=== PATIENT | male | born 1985 | race Caucasian/White ===

== ENCOUNTER 2018-11-24 06:25 | Emergency (ER) | payer SELFPAY ==
[~2018-11-24] VITALS: Ht 182.9 cm; Wt 136.1 kg
[2018-11-24 06:30] VITALS: BP 151/95
--- NOTE | 2018-11-24 06:30 | NUR ---
PT AMBULATED SELF TO BED #11
[2018-11-24 06:39] VITALS: BP 151/95
--- NOTE | 2018-11-24 06:41 | NUR ---
33 Y/O MALE PRESENTS TO ED, C/O OF DRYNESS AROUND FORESKIN OF PENIS. PT STATES DRYNESS PRESENTED 2 WEEKS AGO. NO SKIN BREAKDOWN, NO DISCHARGE/BLEEDING. PT DENIES ANY PAIN VOIDING. PT ENDORSED HAVING UNPROTECTED SEX 2-3 TIMES A WEEK. PT DENIES ANY HX OF STD. PT VSS. ERMD AWARE. WILL CONTINUE TO MONITOR.
== END 2018-11-24 07:26 | disposition home or self-care (01) ==
LOC: MED 06:25
DX: N48.1 Balanitis (principal)
CPT/HCPCS: 81002; 99283